=== PATIENT | male | born 1975 | race Caucasian/White ===

== ENCOUNTER 2017-05-03 10:03 | Emergency (ER) | payer OTHER ==
[~2017-05-03] VITALS: Ht 185.4 cm; Wt 110.0 kg
[2017-05-03 10:18] VITALS: TEMP 36.7; Ht 185.4 cm; Wt 110.0 kg
[2017-05-03] MEDS ORDERED: BUPR100T8 PO (11:01)
[2017-05-03] MEDS ORDERED: MULT-506 PO (11:01)
--- NOTE | 2017-05-03 11:24 | DIAGNOSTIC IMAGING REPORT ---
R TIBIA/FIBULA 2 VIEWS ROUTINE CLINICAL HISTORY: R calf pain pain COMPARISON: None. DISCUSSION: The bones and joint spaces appear intact. There is no evidence of fracture, dislocation or bony disease. There is no evidence for soft tissue swelling. IMPRESSION: Negative study. The above report was generated using voice recognition software. It may contain grammatical, syntax or spelling errors. Electronically signed by: Bala Ariza M.D. 05/03/2017 11:23 AM Dictated Date/Time: 05/03/2017 11:22 AM
--- NOTE | 2017-05-03 11:45 | DIAGNOSTIC IMAGING REPORT ---
RIGHT LOWER EXTREMITY VENOUS DOPPLER HISTORY: R calf pain COMPARISON STUDY: None. FINDINGS: There is normal compressibility, flow, and augmentation within the right lower extremity deep venous system. IMPRESSION: No DVT within the right lower extremity Electronically signed by: Edmond Badillo M.D. 05/03/2017 11:43 AM Dictated Date/Time: 05/03/2017 11:43 AM
--- NOTE | 2017-05-03 11:54 | EMERGENCY ROOM VISIT NOTE ---
History First contact with patient: 10:50 Chief Complaint: LEG PAIN,LEG INJURY Stated Complaint: RIGHT LEG SWOLLEN WITH WARM SENSATION History of Present Illness The patient is a 42 year old male who presents to the Emergency Room via private vehicle accompanied by family with complaints of "right leg swollen with warm sensation". The patient states that at the distal aspect of his right lateral calf he notes a warm sensation that at times will travel. He also notes some swelling to this region. He states that this began last night. He has no history of blood clots. He denies any trauma or injury. He notes he did have a stomach flu about a week ago but this has since passed. No recent strenuous exercise or activity. Review of Systems A complete 6-point Review of Systems was discussed with the patient, with pertinent positives and negatives listed in the History of Present Illness. All remaining Review of Systems questions can be considered negative unless otherwise specified. Past Medical/Surgical History Noncontributory Family History Noncontributory. Social History Smoking Status: Never Smoker Patient lives locally with family. Current/Historical Medications Scheduled Bupropion (Wellbutrin Sr), 100 MG PO BID Multivitamin (Multivitamin), 1 TAB PO HS Physical Exam Vital Signs Date Time Temp Pulse Resp B/P (MAP) Pulse Ox O2 Delivery O2 Flow Rate FiO2 05/03/17 12:11 81 17 135/81 94 05/03/17 10:18 36.7 93 18 159/89 97 Room Air Physical Exam VITAL SIGNS - Vital signs and nursing notes were reviewed. Stable. GENERAL -42-year-old male appearing his stated age who is in no acute distress. Communicates well with provider and answers questions appropriately. SKIN - Without rashes. Skin is intact overlying the right distal lateral leg. No breaks in the integument. Minimal swelling without erythema noted. It is pinpoint. EXTREMITIES - No clubbing or peripheral cyanosis. No pretibial edema present. Pinpoint tenderness overlying a 2 cm x 2 cm slightly raised and tender region between the tibia and fibula of the distal right calf. He is neurovascularly intact in this region. Medical Decision & Procedures ER Provider Diagnostic Interpretation: RIGHT LOWER EXTREMITY VENOUS DOPPLER HISTORY: R calf pain COMPARISON STUDY: None. FINDINGS: There is normal compressibility, flow, and augmentation within the right lower extremity deep venous system. IMPRESSION: No DVT within the right lower extremity Electronically signed by: Edmond Badillo M.D. 05/03/2017 11:43 AM Dictated Date/Time: 05/03/2017 11:43 AM R TIBIA/FIBULA 2 VIEWS ROUTINE CLINICAL HISTORY: R calf pain pain COMPARISON: None. DISCUSSION: The bones and joint spaces appear intact. There is no evidence of fracture, dislocation or bony disease. There is no evidence for soft tissue swelling. IMPRESSION: Negative study. The above report was generated using voice recognition software. It may contain grammatical, syntax or spelling errors. Electronically signed by: Bala Ariza M.D. 05/03/2017 11:23 AM Dictated Date/Time: 05/03/2017 11:22 AM Medical Decision Patient was seen and evaluated as above. He presents to us today with right lower extremity pain. It is tender on exam. It is not actively prominence. It is musculature. X-ray as well as ultrasound was obtained to rule out fracture and or dislocation/DVT. These were all negative. Results as above. I favor this to be most likely a muscle strain or contusion. He appears stable for outpatient management. He was educated upon management, educated upon worrisome symptoms in which to return, had questions answered prior to discharge , and was discharged home in good condition. He was offered a splint and crutches but notes there is no pain with walking and prefers to forego this. He is to follow-up if this persists. In the evaluation and treatment of this patient, the following differential diagnoses were considered: Ankle Fracture, DVT, contusion, abscess, Ankle Sprain , Distal Fibula Fracture, Distal Tibia Fracture, Foot Fracture, Maisonneuve Fracture, among others. Impression Primary Impression: Leg pain, right Departure Information Dispostion Home / Self-Care Condition GOOD Referrals Inder Cuellar M.D. (PCP) Montez Obando D.O. Patient Instructions My [facility] Additional Instructions You have been treated in the Emergency Department for a R lower leg pain. For pain control, you can use the following [id number] medicines: - Regular strength (325mg/tab) Tylenol (acetaminophen) 2 tabs every 4-6 hours as needed. Do not exceed 12 tablets in a 24 hour period. Avoid taking more than 3 grams (3000 mg) of Tylenol per day. This includes any other sources of acetaminophen you may take on a regular basis. - Regular strength (200 mg/tab) Advil (ibuprofen) 1-2 tabs every 4-6 hours as needed. Do not exceed a dose of 3200 mg per day. If this is a recent injury (<24 hrs), ice can be applied to the area of pain for the first 3 days to help decrease pain and inflammation. Return to the Emergency Department if your current symptoms worsen despite treatment course outlined above, or if you develop any of the following symptoms : intractable pain despite aforementioned treatment course or new onset of numbness or tingling of the foot. I do recommend following up with the family doctor if your symptoms persist, or return here with worsening.
[2017-05-03 12:11] VITALS: BP 135/81; PULSE 81; O2SAT 94
== END 2017-05-03 12:12 | disposition home or self-care (01) ==
LOC: C.EDB 10:06 → C.EDD 12:12
DX: M79.661 Pain in right lower leg (principal)

== ENCOUNTER → 2017-11-22 | Outpatient (CLI) | payer OTHER ==
[~2017-11-22] MED LIST: BUPR100T8 PO; MULT-506 PO
--- NOTE | 2017-11-22 09:34 | DIAGNOSTIC IMAGING REPORT ---
LUMBAR SPINE 2 OR 3 VIEWS CLINICAL HISTORY: M54.40, R19.8 pain COMPARISON STUDY: No previous studies for comparison. FINDINGS: Normal study IMPRESSION: Normal study The above report was generated using voice recognition software. It may contain grammatical, syntax or spelling errors. Electronically signed by: Bala Ariza M.D. 11/22/2017 9:33 AM Dictated Date/Time: 11/22/2017 9:32 AM
== END | disposition home or self-care (01) ==
LOC: C.RAD1850 09:15
PROVIDERS: ATTEND Family Medicine
DX: M54.40 Lumbago with sciatica, unspecified side (principal); R19.8 Other specified symptoms and signs involving the digestive system and abdomen